=== PATIENT | male | born 1975 | race Hispanic/Latino ===

== ENCOUNTER 2022-06-28 18:18 | Observation (INO) | payer SELFPAY ==
[2022-06-28] MEDS ORDERED: Midazolam HCl 2 mg/2 ml Vial ONE (19:39)
[2022-06-28] MEDS ORDERED: Sodium Chloride 0.9% 10 ML ONE (19:39)
[2022-06-28] MEDS ORDERED: HYDROmorphone 0.5 MG/0.5 ML SYRINGE ONE (19:56)
[2022-06-28] MEDS ORDERED: Sodium Chloride 0.9% 100 ML ONE (19:57)
[2022-06-28] MEDS ORDERED: CEFAZOLIN 2 GM VIAL ONE (19:57)
[2022-06-28] MEDS ORDERED: PROPOFOL 200 MG/20 ML VIAL ONE (20:01)
[2022-06-28] MEDS ORDERED: Ondansetron PF 4 MG/2 ML Vial ONE (20:01)
[2022-06-28] MEDS ORDERED: Dexamethasone 20 MG/5 ML VIAL ONE (20:01)
[2022-06-28] MEDS ORDERED: Ketorolac Tromethamine 30 MG/ML VIAL ONE (20:01)
[2022-06-28] MEDS ORDERED: Lidocaine 1% MPF 2 ML VIAL ONE (20:01)
[2022-06-28 20:02] LABS: SARS-CoV-2 NAA Rapid Test Not Detected (NotDetected)
[2022-06-28] MEDS ORDERED: Morphine 4 MG/ML VIAL SLOW IVP PRN (20:02)
[2022-06-28] MEDS ORDERED: Milk Of Magnesia 30 ML UDCUP PO PRN (20:02)
[2022-06-28] MEDS ORDERED: Bisacodyl 10 MG SUPP PR PRN (20:02)
[2022-06-28] MEDS ORDERED: HYDROcodone/Acetaminophen 5/325 mg Tablet PO PRN (20:02)
[2022-06-28] MEDS ORDERED: Promethazine HCl 25 MG/ML VIAL IM PRN ×2 (20:02→23:33)
[2022-06-28] MEDS ORDERED: Ondansetron PF 4 MG/2 ML Vial SLOW IVP PRN (20:02)
[2022-06-28] MEDS ORDERED: Fentanyl 100 MCG/2 ML VIAL SLOW IVP PRN (20:02)
[2022-06-28] MEDS ORDERED: traMADol HCl 50 MG TAB PO PRN (20:02)
[2022-06-28] MEDS ORDERED: Meperidine HCl/PF 25 MG/ML VIAL IM PRN (20:06)
[2022-06-28] MEDS ORDERED: Ketorolac Tromethamine 30 MG/ML VIAL IVP PRN (20:06)
[2022-06-28] MEDS ORDERED: Communication Order-Pharmacy FS SCH (20:15)
[2022-06-28] MEDS ORDERED: Neomycin-Polymyxin 1 ML AMP ONE (20:24)
[2022-06-28] MEDS ORDERED: Bacitracin Zinc Ointment 30 gm TUBE ONE (20:24)
[2022-06-28] MEDS ORDERED: Bupivacaine PF 0.5% 30 ML VIAL ONE (20:24)
[2022-06-28] MEDS ORDERED: Vancomycin 1 GM in Premix Bag 1 BAG IVPB SCH (21:00)
[2022-06-28] MEDS ORDERED: Gentamicin 80 MG/2 ML VIAL IVPB SCH (22:00)
[2022-06-28] MEDS ORDERED: PACU-Morphine 4MG/ML VIAL SLOW IVP PRN (23:33)
[2022-06-28] MEDS ORDERED: HYDROmorphone 2 MG/ML VIAL SLOW IVP PRN (23:33)
[2022-06-28] MEDS ORDERED: Promethazine HCl 25 MG/ML VIAL IVPB PRN (23:33)
[2022-06-28] MEDS ORDERED: Ondansetron HCl/PF 4 MG/2 ML Vial IVP PRN (23:33)
[2022-06-29 00:39] VITALS: BMI 36.2
[2022-06-29] MEDS ORDERED: TETANUS AND DIPHTHERIA TOX/PF 0.5 ML DISP.SYRIN IM SCH (00:50)
[2022-06-29] MEDS ORDERED: VANCOMYCIN 2 GRAM/500 ML BAG 2 GM in Premix Bag 1 BAG IVPB SCH (01:00)
[2022-06-29] MEDS ORDERED: Aspirin 81 mg Enteric Coated Tablet PO SCH (01:00)
[2022-06-29] MEDS ORDERED: Gentamicin Sulfate 80 MG in Premix Bag 1 BAG IVPB SCH (03:00)
[2022-06-29] MEDS: Vancomycin 1.5 GRAM/300 ML BAG 1.5 GM in Premix Bag 1 BAG IVPB SCH ×2 (08:11→16:31)
[2022-06-29] MEDS: Aspirin 81 mg Enteric Coated Tablet PO SCH ×2 (08:11→20:24)
[2022-06-29] MEDS: Gentamicin Sulfate 80 MG in Premix Bag 1 BAG IVPB SCH ×2 (11:11→20:24)
[2022-06-30] MEDS: Vancomycin 1.5 GRAM/300 ML BAG 1.5 GM in Premix Bag 1 BAG IVPB SCH ×2 (01:54→08:10)
[2022-06-30 02:08] LABS: Vancomycin, Trough 11.7 ug/mL
[2022-06-30] MEDS: Gentamicin Sulfate 80 MG in Premix Bag 1 BAG IVPB SCH (05:17)
[2022-06-30] MEDS: Aspirin 81 mg Enteric Coated Tablet PO SCH (08:10)
[2022-06-30 11:30] VITALS: BP 134/84; TEMP 98.1
== END 2022-06-30 12:40 | disposition home or self-care (01) ==
LOC: ERS 18:18 → SDC/OP 20:38 → SURG A 21:00 → EEVIPCON 21:00
PROVIDERS: ADMIT Orthopaedic Surgery Hand Surgery; ATTEND Orthopaedic Surgery Hand Surgery
PROC: 0PBP0ZZ Excision of Right Metacarpal, Open Approach (ICD-10-PCS; principal; 2022-06-28)
PROC: 01Q60ZZ Repair Radial Nerve, Open Approach (ICD-10-PCS; 2022-06-28)
PROC: 0LQ70ZZ Repair Right Hand Tendon, Open Approach (ICD-10-PCS; 2022-06-28)
DX: S62.241B Displaced fracture of shaft of first metacarpal bone, right hand, initial encounter for open fracture (principal); S66.221A Laceration of extensor muscle, fascia and tendon of right thumb at wrist and hand level, initial encounter; S64.21XA Injury of radial nerve at wrist and hand level of right arm, initial encounter; Z20.822 Contact with and (suspected) exposure to COVID-19; W29.3XXA Contact with powered garden and outdoor hand tools and machinery, initial encounter
CPT/HCPCS: 36415; 76000; 80170; 80202; G0390; J0690; J1100; J1170; J1580; J1885; J2250; J2405; J2704; J3370; J3490; S0020; U0002